=== PATIENT | male | born 2000 | race Caucasian/White ===

== ENCOUNTER 2022-09-03 22:28 | Emergency (ER) | payer OTHER, SELFPAY ==
--- NOTE | 2022-09-03 22:30 | PC.NURSE ---
PATIENT DENIES ALL SI/HI COMPLAINTS. STATES I JUST WANT HELP WITH MY DEPRESSION .
--- NOTE | 2022-09-03 22:36 | ECG_ITS ---
APPROVED REPORT Exam: Resting ECG HR:82 bpm ECG Measurements Heart Rate 82 AXES VA 112 P 79 QRSd 89 QRS -53 QT 339 T 71 QTc 377 Conclusion SINUS RHYTHM WITH SHORT VA INTERVAL LEFT ANTERIOR FASCICULAR BLOCK [QRS AXIS <= -45, QR IN I, RS IN II] ABNORMAL ECG UNCONFIRMED REPORT Electronically signed by : Juan Carlos Hernandez MD 09/04/2022 19:37:21
[2022-09-03 22:40] VITALS: BP 118/69; PULSE 63; RESP 17; TEMP 37.1; O2SAT 97; BMI 22.4
--- NOTE | 2022-09-03 23:39 | HMH.EDPSYCH ---
Discharge Plan Disposition Chief Complaint: Psychiatric Symptoms Prescriptions Prescriptions: No Action clonazepam [Klonopin] 0.5 mg tablet 0.5 mg PO TID PRN (Reason: anxiety) Qty: 90 2RF benztropine 0.5 mg tablet 0.5 mg PO DAILY divalproex 500 mg tablet,delayed release (DR/EC) 500 mg PO BID risperidone 3 mg tablet 3 mg PO DAILY Invega Sustenna 234 mg/1.5 mL syringe 234 mg IM Q30D Referrals Follow up/Referrals: Provider,Referral, MD [Primary Care Provider] - See instructions Clinical Impressions Clinical Impression: Schizo affective schizophrenia Instructions Patient Instructions: DI for Psychosis Discharge ED Provider: Josiah (ED)Rangel HPI General Chief Complaint: Psychiatric Symptoms Stated Complaint: Suicidal Evaluation Time Seen by Provider: 09/03/22 23:00 Mode of Arrival: Family Vehicle Source of Information: Patient and Medical Record Limitations: No Limitations Description of Symptoms (Recalled from ER Triage Doc. by RN): 22 YO MALE PRESENTS FOR CC OF INCREASED DEPRESSION FEELINGS; DENIES SI. DENIES HI. ALERT,ORIENTED, VSS. PATIENT POLITE, APPROPRIATE WITH STAFF. History of Present Illness HPI Narrative: pt with hx of depression and sent from [facility] for manisha JIM complaint: feels depressed Onset (ago): day(s) Duration: changing over time History of same: Yes Associated psychiatric symptoms: depression Associated symptoms: denies other symptoms Treatments prior to arrival: none Related Data Home Medications Medication Instructions Recorded Confirmed benztropine 0.5 mg tablet 0.5 mg PO DAILY Pain 09/03/22 09/03/22 divalproex 500 mg tablet,delayed 500 mg PO BID Depression 09/03/22 09/03/22 release paliperidone palmitate 234 mg/1.5 234 mg IM Q30D Depression 09/03/22 09/03/22 mL intramuscular syringe (Invega Sustenna) risperidone 3 mg tablet 3 mg PO DAILY BEHAVIOR 09/03/22 09/03/22 Previous Rx's Medication Instructions Recorded clonazepam 0.5 mg tablet (Klonopin) 0.5 mg PO TID PRN anxiety #90 tabs 05/09/22 Allergies Allergy/AdvReac Type Severity Reaction Status Date / Time No Known Allergies Allergy Verified 08/11/19 08:46 [facility] Disclaimer: The information contained in this section may have been updated after the patient was seen, as this information can be updated by other users. Social History Smoking Status: Never smoker alcohol intake: never current occupational status: unemployed Travel in the last 8 weeks: None ROS Obtained: Yes All systems reviewed & no additional complaints except as documented Physical Exam General General appearance: alert Head Head exam: normocephalic Eye Eye exam: Present PERRL and EOMI; Absent scleral icterus ENT ENT exam: Present mucous membranes moist Neck Neck exam: Present trachea midline Respiratory Respiratory exam: Present normal lung sounds bilaterally; Absent respiratory distress Cardiovascular Cardiovascular exam: Present regular rate Abdominal Exam Abdominal exam: Present soft Extremities Exam Extremities exam: Present full ROM Neurological Exam Neurological exam: Present alert, oriented X3 and CN II-XII intact; Absent motor sensory deficit Psychiatric Psychiatric exam: Present flat affect; Absent suicidal ideation Skin Skin exam: Absent rash Medical Decision Making Medical Records Medical records reviewed: Yes I reviewed the patient's medical records. Yohan Inquiry Pt receiving controlled substance: No Vital Signs: 09/03/22 22:40 Temperature 98.7 F Temperature Source Oral Pulse Rate [Right Brachial] 63 Respiratory Rate 17 Blood Pressure [Right Arm] 118/69 Blood Pressure Mean [Right Arm] 85 Blood Pressure Source [Right Arm] Automatic Cuff Blood Pressure Position [Right Arm] Sitting 02 Sat by Pulse Oximetry 97 Oxygen Delivery Method Room Air Lab Data Lab results reviewed: Yes I reviewed the patient's lab results. Lab Results 08/12
[2022-09-04 00:10] LABS: Basophils % 0.4 % (0.1-2.0); Eosinophils # 0.1 K/mm3 (0.0-0.4); Eosinophils % 1.2 % (0.1-12.0); Hemoglobin 14.5 g/dL (14.1-18.0); Lymphocytes # 2.5 K/mm3 (0.7-4.5); Lymphocytes % 32.6 % (10-50); Mean Corpuscular HGB Conc 32.9 g/dL (31.8-35.4); Mean Corpuscular Hemoglobin 30.4 pg (27.0-31.2); Mean Corpuscular Volume 92.6 fl (80-94); Mean Platelet Volume 8.2 fl (7.4-10.4); Monocytes # 0.5 K/mm3 (0.1-1.0); Monocytes % 6.9 % (1.7-9.3); Neutrophils # 4.4 K/mm3 (1.8-7.8); Neutrophils % 58.9 % (37.0-80.0); Platelet Count 206 K/mm3 (142-424); Red Blood Count 4.76 M/mm3 (4.60-6.20); Red Cell Distribution Width 13.7 % (11.5-17.5); White Blood Count 7.6 K/mm3 (4.8-10.8)
[2022-09-04 00:15] LABS: Alanine Aminotransferase 20 U/L (12-78); Albumin Level 4.3 g/dl (3.5-5.0); Albumin/Globulin Ratio 1.7 (1.1-1.8); Alkaline Phosphatase 65 U/L (38-126); Anion Gap 12.5 mEq/L (5-15); Aspartate Amino Transferase 24 U/L (17-59); Bilirubin,Total 0.3 mg/dl (0.2-1.3); Blood Urea Nitrogen 6 mg/dl (9-20); Calcium 8.5 mg/dl (8.4-10.2); Carbon Dioxide 28 mmol/L (22.0-30.0); Chloride 104 mmol/L (98-107); Creatinine Clearance Estimated 209 mL/min (50-200); Estimated Glomerular Filt Rate 167 ml/min (>60); GFR (African American) 202 ML/MIN (>60); Globulin 2.5 g/dL (1.3-3.2); Glucose 121 mg/dl (74-100); Potassium 3.5 mmoL/L (3.5-5.1); Sodium 141 mmol/L (136-145); Total Protein,Serum 6.8 g/dl (6.3-8.2)
[2022-09-04 00:32] LABS: T4 (Thyroxine) 9.1 ug/dl (5.53-11.0)
[2022-09-04 00:46] LABS: Thyroid Stimulating Hormone 1.97 uIU/mL (0.465-4.68)
--- NOTE | 2022-09-04 02:41 | PC.NURSE ---
attempted to call Olayinka Campos multiple times, no answer. called [facility] to see if they could get ahold of someone at this time.
[2022-09-04 02:50] VITALS: BP 121/73; PULSE 61; RESP 16; TEMP 37.1; O2SAT 98
[2022-09-16 21:00] LABS: Free Valproic Acid (Depakote) 3.2
== END 2022-09-04 03:04 | disposition home or self-care (01) ==
PROVIDERS: Emergency Provider Emergency Medicine
DX: F25.9 Schizoaffective disorder, unspecified (principal); R45.851 Suicidal ideations
CPT/HCPCS: 80053; 80164; 80165; 84436; 84443; 85025; 93005; 99285

== ENCOUNTER 2024-03-15 09:19 | Emergency (ER) | payer OTHER, SELFPAY ==
[2024-03-15 09:19] VITALS: BP 144/83; PULSE 113; RESP 18; TEMP 36.8; O2SAT 99; BMI 20.3
--- NOTE | 2024-03-15 09:23 | HMH.EDGENADL ---
Discharge Plan Disposition Patient Disposition: Xfer Psychiatric Hosp Chief Complaint: Psychiatric Symptoms Prescriptions Prescriptions: No Action clonazepam [Klonopin] 0.5 mg tablet 0.5 mg PO TID PRN (Reason: anxiety) Qty: 90 2RF benztropine 0.5 mg tablet 0.5 mg PO DAILY divalproex 500 mg tablet,delayed release (DR/EC) 500 mg PO BID risperidone 3 mg tablet 3 mg PO DAILY Invega Sustenna 234 mg/1.5 mL syringe 234 mg IM Q30D Referrals Follow up/Referrals: Harley Menjivar APRN [Primary Care Provider] - See instructions Clinical Impressions Clinical Impression: Schizo affective schizophrenia, Bipolar 1 disorder, Psychiatric disturbance Print Language Print Language: Citizen Of [place] Discharge ED Provider: Leatha Durbin General Adult HPI General Chief complaint: Psychiatric Symptoms Stated complaint: Behavioral Time Seen by Provider: 03/15/24 09:20 History of Present Illness HPI narrative: This patient is a 23-year-old male with a history of prior substance abuse as well as schizophrenia presenting to the emergency department for evaluation with concern for mental status change. According to EMS, they got report from his personal care facility where he resides, [facility], and they advised that they just had some medication changes as the patient was on an injectable and they are no longer allowed to do injectables there. Since the medication changes, the patient has had gradually worsening behavior and mental status change. They note that he seems slightly agitated and also has been talking nonstop with pressured speech. On medical record review, it appears that he was on paliperidone palmitate ER injectable every 28 days, which was discontinued. They did, however, started him on risperidone and just increased from 3 mg to 4 mg, but it does not seem to be helping. Patient is alert and conversational upon arrival, though he is oriented to person, place, situation, but not time. He has abnormal thought process and is talking to people who aren't there. He denies SI, HI, AVH. He denies any physical concerns or complaints. Related Data Home Medications ?Medication ?Instructions ?Recorded ?Confirmed benztropine 0.5 mg tablet 0.5 mg PO DAILY Pain 09/03/22 09/03/22 divalproex 500 mg tablet,delayed 500 mg PO BID Depression 09/03/22 09/03/22 release paliperidone palmitate 234 mg/1.5 234 mg IM Q30D Depression 09/03/22 09/03/22 mL intramuscular syringe (Invega Sustenna) risperidone 3 mg tablet 3 mg PO DAILY BEHAVIOR 09/03/22 09/03/22 Previous Rx's ?Medication ?Instructions ?Recorded clonazepam 0.5 mg tablet (Klonopin) 0.5 mg PO TID PRN anxiety #90 tabs 05/09/22 Allergies Allergy/AdvReac Type Severity Reaction Status Date / Time No Known Allergies Allergy Verified 08/11/19 08:46 [facility] Disclaimer: The information contained in this section may have been updated after the patient was seen, as this information can be updated by other users. Social History Smoking Status: Never smoker alcohol intake: never current occupational status: unemployed Travel in the last 8 weeks: None ROS Obtained: Yes All systems reviewed & no additional complaints except as documented Physical Exam General General appearance: alert Comment: Pressured speech, flight of ideas, speaking to people who aren't there. Head Head exam: atraumatic and normocephalic Eye Eye exam: Present normal appearance, PERRL and EOMI ENT ENT exam: Present normal exam, normal oropharynx, mucous membranes moist and normal external ear exam Neck Neck exam: Present normal inspection, full ROM and trachea midline; Absent tenderness Chest Chest inspection: Present normal inspection and symmetric chest wall rise; Absent tenderness Respiratory Respiratory exam: Present normal lung sounds bilaterally; Absent respiratory distress, wheezes, stridor or accessory muscle use Cardiovascular Cardiovascular exam: Present regular rate and normal rhythm Abdominal Exam Abdominal exam: Present soft; Absent distention, tenderness or guarding Extremities Exam Extremities exam: Present normal inspection, full ROM and normal capillary refill; Absent tenderness or edema Back Exam Back exam: Present normal inspection and full ROM; Absent tenderness Neurological Exam Neurological exam: Present alert, CN II-XII intact and normal gait; Absent oriented X3 or motor sensory deficit Psychiatric Psychiatric exam: Absent normal affect or normal mood Expanded Psychiatric Exam Expanded psych exam: Present poor eye contact, pressured speech, responds to int stimuli, paranoid, restlessness, flight of ideas and loose associations Skin Skin exam: Present warm and dry Medical Decision Making Medical Records Medical records reviewed: Yes I reviewed the patient's medical records. Screening: Per USPSTF and CDC recommendations, given the prevalence of disease in our region, it is our hospital?s policy to screen for HIV and viral Hepatitis for all patients aged 18 and over and those with ongoing risk factors. Yohan Inquiry Pt receiving controlled substance: No Lab Data Lab results reviewed: Yes I reviewed the patient's lab results. Medical Decision Narrative: In summary, this patient is a 23-year-old male presenting to the Emergency Department for evaluation of psychiatric disturbance in the setting of recent medication changes. Differential diagnoses considered include but are not limited to medication adverse reaction, paranoid schizophrenia, substance use. Ruling out the most morbid conditions drove assessment. It should be noted patient's history includes extensive psychiatric history which is not at goal therapy. This complicates all aspects of care by increasing patient's risk for morbidity. On exam, the patient is alert. He exhibits abnormal thought process, has pressured speech with flight of ideas, seems slightly agitated but is redirectable, and is speaking to people who are not there. He talks constantly to other people and also to himself. He is only oriented to person, place, and situation but not time. Vitals are normal on cardiac telemetry, exam is reassuring with the exception of his psychiatric exam. He denies any physical concerns or complaints. I asked him if we can obtain lab evaluation to evaluate for any significant metabolic derangements that could be contributing to his current psychiatric state, however he declined. ultimately, I feel he would benefit from psychiatric evaluation for further medication management, as with his current abnormal thought processes am concerned that he is potentially a risk to himself. We do not have psychiatry here, so we reached out to [facility] through . I spoke with Nica who is a provider there who advised that they would be happy to accept the patient for psychiatric evaluation. Nurses then called report, and the patient was transported for psychiatric evaluation in stable condition. Critical Care Critical Care Time Critical Care Time: No
--- NOTE | 2024-03-15 09:34 | PC.NURSE ---
dr magallon speaking with constantine roche [facility]
--- NOTE | 2024-03-15 09:38 | PC.NURSE ---
pt accepted by [facility]
--- NOTE | 2024-03-15 09:49 | PC.NURSE ---
[facility] notified of transfer
[2024-03-15 10:52] VITALS: BP 144/83; PULSE 113; RESP 18; TEMP 36.8; O2SAT 99
== END 2024-03-15 10:50 ==
PROVIDERS: Emergency Provider Emergency Medicine; PCP Nurse Practitioner Acute Care
DX: F20.9 Schizophrenia, unspecified (principal)
CPT/HCPCS: 99285

== ENCOUNTER 2025-03-16 21:27 | Emergency (ER) | payer OTHER, SELFPAY ==
--- OUTSIDE RECORDS SUMMARY | 2025-03-16 21:35 | XMS_ITS | Clinical Summary ---
Author Organization [employer] [facility] are Address [address] [place] [address] Phone Care Team Providers Care Surgery Attendant Name Role Phone Unavailable Unavailable Conditions or Problems No information available. Medications No information available. Medications Administered No information available. Allergies, Adverse Reactions, Alerts No information available. Results No information available. Plan of Care No information available. Procedures No information available. Vital Signs No information available. Immunizations No information available. Advance Directives No information available.
[2025-03-16 21:36] VITALS: BP 137/99; PULSE 85; RESP 16; TEMP 36.6; O2SAT 100; BMI 17.6
--- NOTE | 2025-03-16 21:42 | ED_ITS ---
<Statement entered by Kell Forde DO - 03/17/25 00:26> I was consulted by the PAT, and we discussed the complexity of problems being addressed. I approve the treatment and management plan for this patient's care in the emergency department, thus performing a substantial portion of the medical decision making. Kell Forde DO Discharge Plan Disposition Chief Complaint: Psychiatric Symptoms Prescriptions Prescriptions: No Action benztropine 0.5 mg tablet 1 mg PO BID divalproex 500 mg tablet,delayed release (DR/EC) 500 mg PO BID risperidone 3 mg tablet 4 mg PO BID risperidone 4 mg Tablet 4 mg PO BID nicotine 7 mg/24 hr Patch 24 Hour 1 patch TRANSDERMAL Q24H topiramate 50 mg Tablet 50 mg PO BID melatonin 5 mg Tablet 5 mg PO HS PRN (Reason: Insomnia) Invega Sustenna 234 mg/1.5 mL syringe 234 mg IM MONTHLY sod scdnqwfe-khemmyvia-qgvcked Tablet 1 tab PO BID multivit 06-okdbyue-ahsrx-glut 2,500 mcg DFE- 1,000 mcg Tablet 2,500 tab PO DAILY Referrals Follow up/Referrals: Harley Menjivar APRN [Primary Care Provider, Medical] - See instructions Print Language Print Language: Lithuanian Discharge ED Provider: Kell Forde General Adult HPI <JAXON Sahu - Last Filed: 03/16/25 22:19> General Chief complaint: Psychiatric Symptoms Stated complaint: depression Time Seen by Provider: 03/16/25 21:42 Mode of Arrival: EMS Source of Information: Patient and EMS Description of Symptoms (Recalled from ER Triage Doc. by RN): Pt presents via ems from [facility] for evaluation of anger issue that occurred when the patient was overwhelmed EMS reports patient has history of schizophrenia and is compliant with his medications. EMS reports to being told he normally only has one room mate but due to building issues they had to move him with 3 other people Pt presents denying SI/HI and reports that he is safe at home. Pt presents AOx4 and GCS 15 with no complaints at this time. History of Present Illness HPI narrative: 24-year-old male presents emergency department from [facility] ([facility]) for evaluation of agitation/ anger issues , that occurred earlier today. Patient has past medical history consistent with bipolar 1 disorder schizoaffective disorder, on antipsychotic medications states he is taking as prescribed, patient tells me that he is unsure of why he is here, however he is somewhat of a poor historian, has pressured speech and tangential thinking, denies any fever chills chest pain shortness of breath, no nausea no vomiting no constipation no diarrhea no urinary symptomatology, no abdominal pain, patient denies any SI or HI, states that people at [employer] [facility] thought he was going to hit myself , patient denies any visual auditory hallucinations at this time, patient is a current everyday tobacco user, denies any alcohol or drug use. Initial triage vitals are unremarkable. Also of note, patient tells me do all do COVID and flu shots here . Please note that above description of symptoms, in this electronic medical record under categorization of recalled from ER triage doctor by RN are reflective of an initial nursing assessment, however, is not reflective of my full history and physical exam that was personally taken and clarified. Consequentially, this preceding description of symptoms, which may include the patient's categorized chief complaint in the EMR, do not reflect my personal clinical impression, and the ultimate description of history of present illness and patient stated complaints should be deferred to this section of the note. Unless stated otherwise or congruent with this section of the note, additional signs, symptoms, or incongruence should be interpreted as inaccurate with my clinical impression. Onset (ago): hour(s) Related Data Home Medications ?Medication ?Instructions ?Recorded ?Confirmed benztropine 0.5 mg tablet 1 mg PO BID Pain 09/03/22 divalproex 500 mg tablet,delayed 500 mg PO BID Depress ion 09/03/22 03/16/25 release risperidone 3 mg tablet 4 mg PO BID BEHAVIOR 3 03/16/25 melatonin 5 mg tablet 5 mg PO HS PRN Insomnia 09/0403/16/25 multivit no.33-folate 2,500 mcg 2,500 tab PO DAILY 09/0403/16/25 DFE-chromium 1,000 mcg-glutath tablet nicotine 7 mg/24 hr daily 1 patch transdermal Q24H 09/0403/16/25 transdermal patch paliperidone palmitate 234 mg/1.5 234 mg IM MONTHLY 03/16/25 mL intramuscular syringe (Invega Sustenna) risperidone 4 mg tablet 4 mg PO BID 11/04/25 11/04/2 5 sodium xjvbwfmh-wasqvqxvz-hzgiquk 1 tab PO BID 5 03/16/25 tablet topiramate 50 mg tablet 50 mg PO BID 03/16/25 Allergies Allergy/AdvReac Type Severity Reaction Status Date / Time No Known Allergies Allergy Verified 08/11/19 08:46 PFS <JAXON Sahu - Last Filed: 03/16/25 22:19> [facility], [facility] Disclaimer: The information contained in this section may have been updated after the patient was seen, as this information can be updated by other users. Social History Smoking Status: Never smoker alcohol intake: never current occupational status: unemployed Travel in the last 8 weeks?: None Have you lived/traveled outside [place] in past 30 days?: No Contact w/someone who lives/traveled outside US past 30 days?: No Exposure to someone with infectious disease in past 14 days?: No Do you have a fever (greater than 100.4 F or 38 C)?: No Have you tested positive for COVID-19?: No Exposed to someone with COVID-19 in past 14 days?: No Do you have a sore throat?: No Do you have a cough?: No Do you have any weakness?: No Do you have any diarrhea?: No Are you experiencing any unusual bleeding?: No Do you have any muscle aches/pain?: No Do you have any abdominal pain?: No Are you experiencing loss of taste or smell?: No <JAXON Sahu - Last Filed: 03/16/25 22:19> ROS Obtained: Yes All systems reviewed & no additional complaints except as documented Physical Exam <JAXON Sahu - Last Filed: 03/16/25 22:19> General General appearance: alert and in no apparent distress Comment: Unkept appearance, Head Head exam: atraumatic and normocephalic Eye Eye exam: Present PERRL and EOMI ENT ENT exam: Present mucous membranes moist Neck Neck exam: Present normal inspection Chest Chest inspection: Present normal inspection and symmetric chest wall rise Respiratory Respiratory exam: Present normal lung sounds bilaterally; Absent respiratory distress Cardiovascular Cardiovascular exam: Present regular rate and normal rhythm Abdominal Exam Abdominal exam: Present soft; Absent tenderness or guarding Extremities Exam Extremities exam: Present normal inspection Neurological Exam Neurological exam: Present alert and oriented X3 Psychiatric Psychiatric exam: Present other (Some pressured speech, flight of ideas and tangential thinking unsure of patient's baseline.); Absent homicidal ideation or suicidal ideation Skin Skin exam: Present warm and dry Medical Decision Making <JAXON Sahu - Last Filed: 03/16/25 22:19> Medical Records Medical records reviewed: Yes I reviewed the patient's medical records. Screening: Per USPSTF and CDC recommendations, given the prevalence of disease in our region, it is our hospital?s policy to screen for HIV and viral Hepatitis for all patients aged 18 and over and those with ongoing risk factors. Yohan Inquiry Pt receiving controlled substance: No Yohan was queried for this patient: No Vital Signs: 03/16/25 21:36 Temperature 97.8 F Temperature Source Oral Pulse Rate [Radial] 85 Respiratory Rate 16 Blood Pressure [Right Arm] 137/99 H Blood Pressure Mean [Right Arm] 111 Blood Pressure Position [Right Arm] Sitting 02 Sat by Pulse Oximetry 100 Oxygen Delivery Method Room Air Lab Data Lab Results 03/16/25 22:10: WBC 6.6, RBC 3.74 L, Hgb 12.0 L, Hct 33.4 L, MCV 89.3, MCH 32.1 H, MCHC 35.9 H, RDW 12.2, Plt Count 195, MPV 10.4, Neut % (Auto) 52.8, Lymph % (Auto) 36.6, Carver % (Auto) 9.5 H, Eos % (Auto) 0.8, Baso % (Auto) 0.0 L, Neut # (Auto) 3.5, Lymph # (Auto) 2.4, Carver # (Auto) 0.6, Eos # (Auto) 0.1, Baso # (Auto) 0.0, Sodium 127 L, Potassium 3.6, Chloride 94 L, Carbon Dioxide 27, Anion Gap 9.6, BUN 4 L, Creatinine 0.60 L, Estimated Creat Clear 157, Estimated GFR 164, Est GFR ( Amer) 199, Glucose 89, Calcium 8.2 L, Total Bilirubin 0.5, AST 24, ALT 13, Alkaline Phosphatase 63, Total Protein 6.3, Albumin 4.5, Globulin 1.8, Albumin/Globulin Ratio 2.5 H, Urine Color Yellow, Urine Appearance Clear, Urine pH 7.5, Ur Specific [place] <= 1.005, Urine Protein Negative, Urine Glucose (UA) Negative, Urine Ketones Negative, Urine Blood Negative, Urine Nitrate Negative, Urine Bilirubin Negative, Urine Urobilinogen 0.2, Ur Leukocyte Esterase Negative, Salicylates < 1.0 L, Urine Opiates Screen Negative, Urine Methadone Screen Negative, Acetaminophen < 10 L, Ur Barbituates Screen Negative, Ur Phencyclidine Scrn Negative, Ur Amphetamines Screen Negative, U Benzodiazepines Scrn Negative, Urine Cocaine Screen Negative, U Marijuana (THC) Screen Negative, Plasma/Serum Alcohol < 10 03/16/25 22:10 03/16/25 22:10 Orders (Tests/Meds): ORDERS Category Date Time Status Acetaminophen Stat Lab 03/16/25 22:10 Completed Complete Blood Count Auto Diff Stat Lab 03/16/25 22:10 Completed Comprehensive Metabolic Panel Stat Lab 03/16/25 22:10 Completed Drug Screen,Urine Stat Lab 03/16/25 22:10 Completed Ethanol [Ethyl Alcohol] Stat Lab 03/16/25 22:10 Completed Salicylate Stat Lab 03/16/25 22:10 Completed Urinalysis and Microscopic Stat Lab 03/16/25 22:10 Results Medical Decision Narrative: 24-year-old male presents to the emergency department via [facility] for agitation, differential diagnose include but not limited to, acute psychosis, electrolyte disturbance, toxic encephalopathy, bipolar disorder, schizophrenia, schizoaffective disorder, delirium among others. Will obtain basic laboratory studies, UDS, urinalysis, ethyl alcohol level, salicylate level, acetaminophen level. I discussed this patient's case with the attending physician Dr. Forde, she will be assuming amended the patient's care/workup. Disposition is pending medical clearance and possible psychiatric consultation/evaluation. <Kell Forde, DO - Last Filed: 03/17/25 00:26> Vital Signs: 03/16/25 21:36 Temperature 97.8 F Temperature Source Oral Pulse Rate [Radial] 85 Respiratory Rate 16 Blood Pressure [Right Arm] 137/99 H Blood Pressure Mean [Right Arm] 111 Blood Pressure Position [Right Arm] Sitting 02 Sat by Pulse Oximetry 100 Oxygen Delivery Method Room Air Lab Data Lab results reviewed: Yes I reviewed the patient's lab results. Lab Results 03/16/25 22:10: WBC 6.6, RBC 3.74 L, Hgb 12.0 L, Hct 33.4 L, MCV 89.3, MCH 32.1 H, MCHC 35.9 H, RDW 12.2, Plt Count 195, MPV 10.4, Neut % (Auto) 52.8, Lymph % (Auto) 36.6, Carver % (Auto) 9.5 H, Eos % (Auto) 0.8, Baso % (Auto) 0.0 L, Neut # (Auto) 3.5, Lymph # (Auto) 2.4, Carver # (Auto) 0.6, Eos # (Auto) 0.1, Baso # (Auto) 0.0, Sodium 127 L, Potassium 3.6, Chloride 94 L, Carbon Dioxide 27, Anion Gap 9.6, BUN 4 L, Creatinine 0.60 L, Estimated Creat Clear 157, Estimated GFR 164, Est GFR ( Amer) 199, Glucose 89, Calcium 8.2 L, Total Bilirubin 0.5, AST 24, ALT 13, Alkaline Phosphatase 63, Total Protein 6.3, Albumin 4.5, Globulin 1.8, Albumin/Globulin Ratio 2.5 H, Urine Color Yellow, Urine Appearance Clear, Urine pH 7.5, Ur Specific [place] <= 1.005, Urine Protein Negative, Urine Glucose (UA) Negative, Urine Ketones Negative, Urine Blood Negative, Urine Nitrate Negative, Urine Bilirubin Negative, Urine Urobilinogen 0.2, Ur Leukocyte Esterase Negative, Salicylates < 1.0 L, Urine Opiates Screen Negative, Urine Methadone Screen Negative, Acetaminophen < 10 L, Ur Barbituates Screen Negative, Ur Phencyclidine Scrn Negative, Ur Amphetamines Screen Negative, U Benzodiazepines Scrn Negative, Urine Cocaine Screen Negative, U Marijuana (THC) Screen Negative, Plasma/Serum Alcohol < 10 Orders (Tests/Meds): ORDERS Category Date Time Status Acetaminophen Stat Lab 03/16/25 22:10 Completed Complete Blood Count Auto Diff Stat Lab 03/16/25 22:10 Completed Comprehensive Metabolic Panel Stat Lab 03/16/25 22:10 Completed Drug Screen,Urine Stat Lab 03/16/25 22:10 Completed Ethanol [Ethyl Alcohol] Stat Lab 03/16/25 22:10 Completed Salicylate Stat Lab 03/16/25 22:10 Completed Urinalysis and Microscopic Stat Lab 03/16/25 22:10 Results Medical Decision Narrative: 24-year-old male presents to the emergency department via [facility] for agitation, differential diagnose include but not limited to, acute psychosis, electrolyte disturbance, toxic encephalopathy, bipolar disorder, schizophrenia, schizoaffective disorder, delirium among others. Will obtain basic laboratory studies, UDS, urinalysis, ethyl alcohol level, salicylate level, acetaminophen level. I discussed this patient's case with the attending physician Dr. Forde, she will be assuming amended the patient's care/workup. Disposition is pending medical clearance and possible psychiatric consultation/evaluation. Kell Forde, DO I assumed care of the patient at 2200. Patient's labs were reviewed and interpreted by myself and showed: CBC with no leukocytosis, hemoglobin was stable. CMP was unremarkable. UA was unremarkable. Urine drug screen negative. Alcohol level normal. On my repeat evaluation, patient was alert and oriented x 3. Patient did not show any acute signs of acute psychosis. Patient had forward thinking. Patient denied any SI or HI. Patient denied any visual or auditory hallucinations. At this time I felt that patient was stable for discharge back to [facility]. Critical Care <JAXON Sahu - Last Filed: 03/16/25 22:19> Critical Care Time Critical Care Time: No
[2025-03-16 22:21] LABS: Microscopic, Urine URINE MICROSCOPIC (MICROSCOPIC)
[2025-03-16 22:22] LABS: Bilirubin,Urine Negative (Negative); Color,Urine YELLOW (Yellow); Glucose,Urine (UA) Negative (Negative); Ketones,Urine Negative (Negative); Leukocyte Esterase,Urine Negative (Negative); PH,Urine 7.5 (5.0-8.5); Protein,Urine Negative (Negative); Specific Gravity, Urine <= 1.005 (1.005-1.030); Urobilinogen,Urine 0.2 EU/dl (0.2)
[2025-03-16 22:26] LABS: Albumin Level 4.5 g/dl (3.5-5.0); Chloride 94 mmol/L (98-107)
[2025-03-16 22:27] LABS: Potassium 3.6 mmoL/L (3.5-5.1); Sodium 127 mmol/L (136-145)
[2025-03-16 22:29] LABS: Alanine Aminotransferase 13 U/L (12-78); Albumin/Globulin Ratio 2.5 (1.1-1.8); Alkaline Phosphatase 63 U/L (38-126); Anion Gap 9.6 mEq/L (5-15); Aspartate Amino Transferase 24 U/L (17-59); Bilirubin,Total 0.5 mg/dl (0.2-1.3); Blood Urea Nitrogen 4 mg/dl (9-20); Carbon Dioxide 27 mmol/L (22.0-30.0); Creatinine Clearance Estimated 157 mL/min (50-200); Creatinine,Serum 0.60 mg/dl (0.66-1.25); Estimated Glomerular Filt Rate 164 ml/min (>60); GFR (African American) 199 ML/MIN (>60); Globulin 1.8 g/dL (1.3-3.2); Total Protein,Serum 6.3 g/dl (6.3-8.2)
[2025-03-16 22:30] LABS: Calcium 8.2 mg/dl (8.4-10.2); Glucose 89 mg/dl (74-100)
[2025-03-16 22:31] LABS: Acetaminophen < 10 ug/ml (10-30); Salicylate < 1.0 mg/dL (2.0-20.0)
[2025-03-16 22:36] LABS: Benzodiazepines Screen,Urine Negative ng/ml (<200)
[2025-03-16 22:37] LABS: Amphetamine/Metha Screen,Urine Negative ng/ml (<1000); Barbiturates Screen,Urine Negative ng/ml (<200)
[2025-03-16 22:38] LABS: Hematocrit 33.4 % (42.0-52.0); Hemoglobin 12.0 g/dL (14.1-18.0); Immature Granulocytes % 0.3 %; Mean Corpuscular HGB Conc 35.9 g/dL (31.8-35.4); Mean Corpuscular Hemoglobin 32.1 pg (27.0-31.2); Mean Corpuscular Volume 89.3 fl (80-94); Nucleated Red Blood Cells % 0 %; Platelet Count 195 K/mm3 (142-424); Red Blood Count 3.74 M/mm3 (4.60-6.20); Red Cell Distribution Width-SD 39.8 fL; White Blood Count 6.6 K/mm3 (4.8-10.8)
[2025-03-16 22:39] LABS: Methadone Screen,Urine Negative ng/ml (<300)
[2025-03-16 22:40] LABS: Opiate Screen,Urine Negative ng/ml (<300); Phencyclidine Screen,Urine Negative ng/ml (<25)
[2025-03-17 00:30] VITALS: BP 102/68; PULSE 96; O2SAT 98
--- NOTE | 2025-03-17 00:32 | PC.NURSE ---
warm blanket and pillow given upon request
[2025-03-17 00:35] VITALS: BP 100/61; PULSE 70; O2SAT 100
[2025-03-17 00:45] VITALS: BP 96/56; PULSE 60; O2SAT 98
[2025-03-17 00:50] VITALS: BP 97/48; PULSE 58; O2SAT 97
[2025-03-17 01:45] LABS: Bacteria,Urine Trace /lpf; Squamous Epithelial Cell,Urine Occasional #/hpf (0-5)
--- NOTE | 2025-03-17 07:15 | PC.NURSE ---
Breakfast tray delivered
[2025-03-17 08:09] VITALS: BP 111/52; PULSE 62; RESP 18; TEMP 36.8; O2SAT 98
--- NOTE | 2025-03-17 08:09 | PC.NURSE ---
Called [facility], spoke with pushpa, she will be up to [facility] picker patient after she drops off patient for an appointment.
== END 2025-03-17 08:30 | disposition home or self-care (01) ==
PROVIDERS: Physician Assistant; Emergency Provider Student in an Organized Health Care Education/Training Program; PCP Nurse Practitioner Acute Care
DX: R45.1 Restlessness and agitation (principal); F25.9 Schizoaffective disorder, unspecified; F31.9 Bipolar disorder, unspecified; F17.210 Nicotine dependence, cigarettes, uncomplicated
CPT/HCPCS: 80053; 80307; 80320; 80329; 81001; 85025; 99283; 99284